=== PATIENT | female | born 2000 | race Two or more races ===

== ENCOUNTER 2020-07-30 14:57 | Emergency (ER) | payer MEDICAID ==
[~2020-07-30] VITALS: Ht 152.4 cm; Wt 40.5 kg
[2020-07-30 15:47] LABS: BASOPHILS % (AUTO) 1 % (0-1); EOSINOPHILS % (AUTO) 1 % (1-7); LYMPHOCYTES % (AUTO) 18 % (22-44); MEAN CORPUSCULAR HEMOGLOBIN 20.2 pg (27.0-34.8); MEAN CORPUSCULAR HGB CONC 30.8 g/dL (32.4-35.8); MEAN PLATELET VOLUME 8.5 fL (7.4-10.4); MONOCYTES % (AUTO) 5 % (2-9); NEUTROPHILS % (AUTO) 75 % (42-75); PLATELET COUNT 437 x10^3/uL (130-400); RED BLOOD COUNT 5.19 x10^6/uL (3.82-5.3); RED CELL DISTRIBUTION WIDTH 20.4 % (9.6-15.2)
[2020-07-30 15:58] LABS: ALBUMIN 4.6 g/dL (3.4-5.0); ANION GAP 7 mmol/L (5-15); CALCIUM 9.2 mg/dL (8.5-10.1); CHLORIDE 108 mmol/L (98-107)
--- NOTE | 2020-07-30 15:59 | NUR ---
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
--- NOTE | 2020-07-30 16:07 | NUR ---
TASK RN: PT AMBULATED STEADILY TO ROOM FROM LOBBY WITH RN. PT REPORTS INTERMITTENT CHEST PRESSURE LAST NIGHT AND THIS AM THAT HAS RESOLVED AT THIS TIME. +FEVER. DENIES PRODUCTIVE COUGH. ON ABX ONE WEEK AGO FOR UTI WHICH PT STATES IS IMPROVING. BP/SPO2/ECG MONITORING IN PLACE. TACHYCARDIAC AND AFEBRILE. REPORT TO PRIMARY RN SPIKE
[2020-07-30 16:20] LABS: MD MORPH REVIEW ONLY
[2020-07-30 16:23] LABS: ANISOCYTOSIS 1+; HYPOCHROMIA 1+; MICROCYTOSIS 2+; OVALOCYTES 1+
[2020-07-30 16:24] LABS: <PLATELET ESTIMATE> INCREASED
[2020-07-30 17:36] VITALS: BP 118/69
== END 2020-07-30 18:13 | disposition home or self-care (01) ==
LOC: ED 18:07
DX: R07.89 Other chest pain (principal); Z20.828 Contact with and (suspected) exposure to other viral communicable diseases; R06.00 Dyspnea, unspecified; R11.2 Nausea with vomiting, unspecified; D50.9 Iron deficiency anemia, unspecified; R00.0 Tachycardia, unspecified; R51.9 Headache, unspecified
CPT/HCPCS: 36415; 71045; 80048; 82040; 84443; 84703; 85025; 87635; 93005; 99285